=== PATIENT | male | born 1955 | race Caucasian/White ===

== ENCOUNTER 2023-12-29 07:39 | Day surgery (SDC) | payer OTHER ==
[~2023-12-29] VITALS: Ht 172.7 cm; Wt 87.1 kg
[2023-12-29] MEDS ORDERED: BUPIVACAINE /PF 0.25% 30 ML VIAL INJ ONE (10:00)
[2023-12-29] MEDS ORDERED: methylPREDNISolone ACETATE 40 MG/ML ONE (10:00)
[2023-12-29] MEDS ORDERED: IOHEXOL 300 mgI/mL, 50 mL INFUS..BTL IV ONE (10:00)
[2023-12-29] MEDS ORDERED: LIDOCAINE MPF 2% 20 MG/1 ML, 5 ML VIAL INH ONE (10:00)
[2023-12-29] MEDS ORDERED: NORMAL SALINE 10 ML VIAL ONE (10:00)
[2023-12-29] MEDS: MIDAZOLAM HCL 5 MG/5 ML VIAL ONE (10:46)
[2023-12-29] MEDS: fentaNYL CITRATE/PF 100 MCG/2 ML AMP ONE (10:49)
[2023-12-29 14:43] VITALS: O2SAT 100
[2023-12-29 16:47] VITALS: BP_SYST 122; PULSE 68; RESP 16
== END 2023-12-29 11:43 | disposition home or self-care (01) ==
LOC: SDS 07:39 → SMU 07:40 → SDS 11:43
PROVIDERS: ATTEND Internal Medicine
DX: M51.16 Intervertebral disc disorders with radiculopathy, lumbar region (principal); Z98.890 Other specified postprocedural states; Z88.0 Allergy status to penicillin
CPT/HCPCS: 62323; J3490; J1030; J2250; J3010; Q9967; 76000